=== PATIENT | female | born 1955 | race Caucasian/White ===

== ENCOUNTER → 2019-12-19 | Outpatient (CLI) | payer OTHER, BC | LOC: LAB 10:49 | DX: Z01.812 Encounter for preprocedural laboratory examination (principal); Z20.828 Contact with and (suspected) exposure to other viral communicable diseases ==

== ENCOUNTER → 2019-12-26 | Outpatient (CLI) | payer OTHER, BC ==
[~2019-12-26] VITALS: Ht 162.6 cm; Wt 111.1 kg
[~2019-12-26] MED LIST: ALTACE10 MG PO; ATENOLOL 50MG T50 M1 PO; BENADRYL25 MG PO; COLACE100 MG PO; FENOFIBRATE48 MG PO; FLEXERIL PO; FUROSEMIDE 20 M20 M1 PO; GABAPENTIN600 M1 PO; HUMALOG100 UNIT/1 SUBQ; LANTUS SUBQ; MELATONIN10 M1 PO; OMEPRAZOLE20 M2 PO; PERCOCET 10-321 EAC1 PO; PLAQUENIL200 MG PO; ROBAXIN 750 MG750 MG PO; SYNTHROID175 MCG PO; TRIAMTERENE/HCT1 CA1 PO; VITAMIN D310 MC1 PO; ZOCOR20 MG PO; ZYLOPRIM300 MG PO
[2019-12-26 12:16] LABS: CREATININE 1.7 mg/dL (0.6-1.0)
[2019-12-26 12:52] VITALS: BP 160/84
== END ==
LOC: MRI 11:29
DX: M50.11 Cervical disc disorder with radiculopathy, high cervical region (principal); M50.10 Cervical disc disorder with radiculopathy, unspecified cervical region; M43.22 Fusion of spine, cervical region; M47.22 Other spondylosis with radiculopathy, cervical region; M48.00 Spinal stenosis, site unspecified; M41.86 Other forms of scoliosis, lumbar region; M48.061 Spinal stenosis, lumbar region without neurogenic claudication
CPT/HCPCS: 70005